=== PATIENT | female | born 1995 | race Caucasian/White ===

== ENCOUNTER 2017-10-16 21:01 | Emergency (ER) | payer OTHER ==
[2017-10-16 21:32] LABS: KETONE, URINE AUTO RFX NEGATIVE (NEGATIVE); LEUKOCYTE ESTERASE UR AUTO RFX NEGATIVE (NEGATIVE); NITRITE, URINE AUTO RFX NEGATIVE (NEGATIVE); RBC, URINE AUTO RFX 1 /HPF (0-3); SPECIFIC GRAVITY UR AUTO RFX 1.012 (1.002-1.035); SQUAM EPITHELIAL CELL UR AURFX 2 /HPF (0-6); WBC, URINE AUTO RFX 0 /HPF (0-3)
[2017-10-16 23:12] LABS: BASO % 0.4 % (0.0-1.0); EOS # 0.1 10^3/uL (0.0-0.50); EOS % 0.7 % (0.0-3.0); HEMATOCRIT 32.8 % (36.0-47.0); HEMOGLOBIN 11.2 g/dl (12.0-15.5); IMMATURE GRANULOCYTE % 0.2 % (0-3.0); LYMPH # 2.5 10^3/uL (1.5-6.5); MEAN CORPUSCULAR HGB CONC 34.1 g/dl (32.0-36.5); MEAN CORPUSCULAR VOLUME 90.9 fl (80.0-96.0); MONO # 0.6 10^3/uL (0.0-0.8); MONO % 6.9 % (0.0-5.0); NEUTROPHILS # 5.8 10^3/uL (1.8-7.7); NEUTROPHILS % 63.8 % (36.0-66.0); PLATELET COUNT, AUTOMATED 221 10^3/uL (150-450); RED BLOOD COUNT 3.61 10^6/uL (4.00-5.40); RED CELL DISTRIBUTION WIDTH 12.2 % (11.5-14.5)
[2017-10-16 23:46] LABS: ANION GAP 7 MEQ/L (8-16); BLOOD UREA NITROGEN 11 MG/DL (7-18); CALCIUM LEVEL 8.7 MG/DL (8.5-10.1); CARBON DIOXIDE LEVEL 25 MEQ/L (21-32); CHLORIDE LEVEL 110 MEQ/L (98-107); CREATININE FOR GFR 0.89 MG/DL (0.55-1.30); GLOMERULAR FILTRATION RATE > 60.0 (>60); GLUCOSE, FASTING 89 MG/DL (70-100); POTASSIUM SERUM 3.8 MEQ/L (3.5-5.1); SODIUM LEVEL 142 MEQ/L (136-145)
[2017-10-17 02:31] LABS: CHLAMYDIA DNA AMPLIFICATION NEGATIVE (NEGATIVE); GC DNA AMPLIFICATION NEGATIVE (NEGATIVE)
== END 2017-10-17 01:24 | disposition home or self-care (01) ==
LOC: M ED 10-17 01:24
DX: R10.2 Pelvic and perineal pain (principal); Z88.0 Allergy status to penicillin; F17.210 Nicotine dependence, cigarettes, uncomplicated
CPT/HCPCS: 80048

== ENCOUNTER → 2017-10-18 | Outpatient (CLI) | payer OTHER ==
[2017-10-18 20:08] LABS: HCG, SERUM QUANTITATIVE 32 MIU/ML
== END ==
LOC: M LAB 18:24
DX: N91.2 Amenorrhea, unspecified (principal)
CPT/HCPCS: 84702

== ENCOUNTER 2017-12-02 00:38 | Emergency (ER) | payer OTHER ==
[2017-12-02] MEDS: NS 1,000 ML IV (01:45)
[2017-12-02] MEDS: ONDANSETRON 4MG/2ML VIAL (J2405) IV (01:45)
[2017-12-02 02:10] LABS: BASO % 0.3 % (0.0-1.0); EOS # 0.1 10^3/uL (0.0-0.50); EOS % 0.4 % (0.0-3.0); HEMATOCRIT 34.6 % (36.0-47.0); HEMOGLOBIN 12.1 g/dl (12.0-15.5); IMMATURE GRANULOCYTE % 0.2 % (0-3.0); LYMPH # 2.2 10^3/uL (1.5-6.5); LYMPH % 19.2 % (24.0-44.0); MEAN CORPUSCULAR HEMOGLOBIN 31.5 pg (27.0-33.0); MEAN CORPUSCULAR VOLUME 90.1 fl (80.0-96.0); MONO # 0.7 10^3/uL (0.0-0.8); MONO % 6.2 % (0.0-5.0); NEUTROPHILS # 8.6 10^3/uL (1.8-7.7); NEUTROPHILS % 73.7 % (36.0-66.0); PLATELET COUNT, AUTOMATED 249 10^3/uL (150-450); RED BLOOD COUNT 3.84 10^6/uL (4.00-5.40); RED CELL DISTRIBUTION WIDTH 12.4 % (11.5-14.5); WHITE BLOOD COUNT 11.6 10^3/uL (4.0-10.0)
[2017-12-02 02:44] LABS: ALBUMIN 4.1 GM/DL (3.2-5.2); ALBUMIN/GLOBULIN RATIO 1.24 (1.00-1.93); ALKALINE PHOSPHATASE 49 U/L (45-117); ALT/SGPT 22 U/L (12-78); ANION GAP 10 MEQ/L (8-16); AST/SGOT 15 U/L (7-37); BILIRUBIN,DIRECT < 0.1 MG/DL (0.0-0.2); BILIRUBIN,TOTAL 0.3 MG/DL (0.2-1.0); BLOOD UREA NITROGEN 9 MG/DL (7-18); CALCIUM LEVEL 9.4 MG/DL (8.5-10.1); CARBON DIOXIDE LEVEL 28 MEQ/L (21-32); CHLORIDE LEVEL 105 MEQ/L (98-107); CREATININE FOR GFR 0.71 MG/DL (0.55-1.30); GLOMERULAR FILTRATION RATE > 60.0 (>60); GLUCOSE, FASTING 100 MG/DL (70-100); HCG, SERUM QUANTITATIVE 18134 MIU/ML; LIPASE 65 U/L (73-393); POTASSIUM SERUM 3.7 MEQ/L (3.5-5.1); SODIUM LEVEL 143 MEQ/L (136-145); TOTAL PROTEIN 7.4 GM/DL (6.4-8.2)
== END 2017-12-02 03:37 | disposition home or self-care (01) ==
LOC: M ED 00:38
DX: O03.39 Incomplete spontaneous abortion with other complications (principal); F17.210 Nicotine dependence, cigarettes, uncomplicated; Z88.0 Allergy status to penicillin
CPT/HCPCS: J2405

== ENCOUNTER 2017-12-09 12:49 | Day surgery (SDC) | payer OTHER ==
[2017-12-09] MEDS ORDERED: NS 1,000 ML IV ×4 (13:00)
[2017-12-09] MEDS ORDERED: PROPOFOL 200 MG/20 ML VIAL As Ordered ×2 (13:19)
[2017-12-09] MEDS ORDERED: LIDOCAINE 2% INJ 100 MG/5 ML SDV (FOR ANES.) As Ordered ×2 (13:20)
[2017-12-09] MEDS ORDERED: fentaNYL 100 MCG/2 ML INJECTION (J3010) As Ordered ×2 (13:22)
[2017-12-09] MEDS ORDERED: MIDAZOLAM INJ 2 MG/2 ML VIAL (J2250) As Ordered ×2 (13:22)
[2017-12-09 13:23] LABS: HEMATOCRIT 35.3 % (36.0-47.0); HEMOGLOBIN 11.9 g/dl (12.0-15.5); MEAN CORPUSCULAR HEMOGLOBIN 31.2 pg (27.0-33.0); MEAN CORPUSCULAR HGB CONC 33.7 g/dl (32.0-36.5); MEAN CORPUSCULAR VOLUME 92.7 fl (80.0-96.0); PLATELET COUNT, AUTOMATED 214 10^3/uL (150-450); RED BLOOD COUNT 3.81 10^6/uL (4.00-5.40); RED CELL DISTRIBUTION WIDTH 12.4 % (11.5-14.5)
[2017-12-09] MEDS ORDERED: KETOROLAC 60 MG/2 ML VIAL (J1885) As Ordered ×2 (13:28)
[2017-12-09] MEDS ORDERED: ONDANSETRON 4MG/2ML VIAL (J2405) As Ordered ×2 (13:28)
[2017-12-09] MEDS ORDERED: METOCLOPRAMIDE INJ 10MG/2ML VIAL (J2765) As Ordered ×2 (13:28)
[2017-12-09] MEDS ORDERED: dexameTHASONE 4 MG/ML 1ML VIAL (J1100) As Ordered ×2 (13:28)
[2017-12-09 14:01] LABS: ANION GAP 7 MEQ/L (8-16); BLOOD UREA NITROGEN 7 MG/DL (7-18); CALCIUM LEVEL 8.6 MG/DL (8.5-10.1); CARBON DIOXIDE LEVEL 26 MEQ/L (21-32); CHLORIDE LEVEL 107 MEQ/L (98-107); CREATININE FOR GFR 0.58 MG/DL (0.55-1.30); GLOMERULAR FILTRATION RATE > 60.0 (>60); GLUCOSE, FASTING 93 MG/DL (70-100); HCG, SERUM QUANTITATIVE 4572 MIU/ML; SODIUM LEVEL 140 MEQ/L (136-145)
[2017-12-09] MEDS: ACETAMINOPHEN 650 MG SUPP As Ordered ×2 (14:05)
[2017-12-09] MEDS: ACETAMINOPHEN 650 MG SUPP PR ×2 (14:30)
[2017-12-09] MEDS ORDERED: fentaNYL 100 MCG/2 ML INJECTION (J3010) IV ×2 (14:45)
[2017-12-09] MEDS ORDERED: LR 1,000 ML IV ×2 (14:45)
[2017-12-09] MEDS ORDERED: ONDANSETRON 4MG/2ML VIAL (J2405) IV ×2 (14:45)
[2017-12-09] MEDS ORDERED: PERCOCET 5MG/325MG TAB PO ×2 (14:45)
[2017-12-09] MEDS ORDERED: KETOROLAC 30 MG/ML VIAL (J1885) IV ×2 (20:00)
== END 2017-12-09 16:45 | disposition home or self-care (01) ==
LOC: M SDC 12:49
DX: O02.1 Missed abortion (principal); G43.909 Migraine, unspecified, not intractable, without status migrainosus; Z88.0 Allergy status to penicillin; Z72.0 Tobacco use
CPT/HCPCS: 59820

== ENCOUNTER 2018-02-24 13:02 | Emergency (ER) | payer OTHER | END 2018-02-24 14:40 | disposition left against medical advice (07) | LOC: M ED 13:02 | DX: O20.9 Hemorrhage in early pregnancy, unspecified (principal); Z53.21 Procedure and treatment not carried out due to patient leaving prior to being seen by health care provider ==

== ENCOUNTER 2018-04-14 11:47 | Emergency (ER) | payer OTHER ==
[2018-04-14 12:25] LABS: BASO % 0.3 % (0.0-1.0); EOS % 0.5 % (0.0-3.0); HEMATOCRIT 31.5 % (36.0-47.0); HEMOGLOBIN 11.1 g/dl (12.0-15.5); IMMATURE GRANULOCYTE % 0.5 % (0-3.0); LYMPH # 1.9 10^3/uL (1.5-6.5); LYMPH % 29.5 % (24.0-44.0); MEAN CORPUSCULAR HEMOGLOBIN 31.4 pg (27.0-33.0); MEAN CORPUSCULAR HGB CONC 35.2 g/dl (32.0-36.5); MONO # 0.4 10^3/uL (0.0-0.8); MONO % 6.3 % (0.0-5.0); NEUTROPHILS # 4.1 10^3/uL (1.8-7.7); NEUTROPHILS % 62.9 % (36.0-66.0); PLATELET COUNT, AUTOMATED 188 10^3/uL (150-450); RED BLOOD COUNT 3.54 10^6/uL (4.00-5.40); RED CELL DISTRIBUTION WIDTH 12.4 % (11.5-14.5); WHITE BLOOD COUNT 6.5 10^3/uL (4.0-10.0)
[2018-04-14 12:56] LABS: ALBUMIN 3.8 GM/DL (3.2-5.2); ALBUMIN/GLOBULIN RATIO 1.36 (1.00-1.93); ALKALINE PHOSPHATASE 47 U/L (45-117); ALT/SGPT 16 U/L (12-78); ANION GAP 8 MEQ/L (8-16); AST/SGOT 14 U/L (7-37); BILIRUBIN,DIRECT < 0.1 MG/DL (0.0-0.2); BILIRUBIN,TOTAL 0.2 MG/DL (0.2-1.0); BLOOD UREA NITROGEN 6 MG/DL (7-18); CALCIUM LEVEL 8.8 MG/DL (8.5-10.1); CARBON DIOXIDE LEVEL 25 MEQ/L (21-32); CHLORIDE LEVEL 105 MEQ/L (98-107); CREATININE FOR GFR 0.54 MG/DL (0.55-1.30); GLOMERULAR FILTRATION RATE > 60.0 (>60); GLUCOSE, FASTING 93 MG/DL (70-100); LIPASE 74 U/L (73-393); POTASSIUM SERUM 3.7 MEQ/L (3.5-5.1); SODIUM LEVEL 138 MEQ/L (136-145); TOTAL PROTEIN 6.6 GM/DL (6.4-8.2)
[2018-04-14 12:57] LABS: CONTROL LINE HCG INT CTR LINE PRESENT; HCG, SERUM QUALITATIVE POSITIVE (NEGATIVE)
[2018-04-14 13:25] LABS: KETONE, URINE AUTO RFX NEGATIVE (NEGATIVE); LEUKOCYTE ESTERASE UR AUTO RFX NEGATIVE (NEGATIVE); MUCUS, URINE RFX SMALL (NEGATIVE); NITRITE, URINE AUTO RFX NEGATIVE (NEGATIVE); RBC, URINE AUTO RFX 0 /HPF (0-3); SPECIFIC GRAVITY UR AUTO RFX 1.006 (1.002-1.035); SQUAM EPITHELIAL CELL UR AURFX 2 /HPF (0-6); WBC, URINE AUTO RFX 0 /HPF (0-3)
[2018-04-14 14:04] LABS: HCG, SERUM QUANTITATIVE 49717 MIU/ML
== END 2018-04-14 14:30 | disposition home or self-care (01) ==
LOC: M ED 11:47
DX: O99.89 Other specified diseases and conditions complicating pregnancy, childbirth and the puerperium (principal); R10.13 Epigastric pain; Z3A.13 13 weeks gestation of pregnancy; Z79.899 Other long term (current) drug therapy; Z88.0 Allergy status to penicillin
CPT/HCPCS: 76705

== ENCOUNTER 2018-04-25 18:22 | Emergency (ER) | payer OTHER ==
[2018-04-25] MEDS: NS 1,000 ML IV (20:45)
[2018-04-25] MEDS: ONDANSETRON 4MG/2ML VIAL (J2405) IV (20:45)
[2018-04-25 21:12] LABS: AMORPHOUS SEDIMENT RFX SMALL (NEGATIVE); KETONE, URINE AUTO RFX 1+ mg/dL (NEGATIVE); LEUKOCYTE ESTERASE UR AUTO RFX NEGATIVE (NEGATIVE); MUCUS, URINE RFX LARGE (NEGATIVE); NITRITE, URINE AUTO RFX NEGATIVE (NEGATIVE); RBC, URINE AUTO RFX 7 /HPF (0-3); SPECIFIC GRAVITY UR AUTO RFX 1.029 (1.002-1.035); SQUAM EPITHELIAL CELL UR AURFX 32 /HPF (0-6); WBC, URINE AUTO RFX 4 /HPF (0-3)
[2018-04-25 21:13] LABS: BASO % 0.1 % (0.0-1.0); EOS % 0.3 % (0.0-3.0); HEMATOCRIT 35.1 % (36.0-47.0); HEMOGLOBIN 12.1 g/dl (12.0-15.5); IMMATURE GRANULOCYTE % 0.4 % (0-3.0); LYMPH # 2.9 10^3/uL (1.5-6.5); LYMPH % 27.5 % (24.0-44.0); MEAN CORPUSCULAR HEMOGLOBIN 31.3 pg (27.0-33.0); MEAN CORPUSCULAR HGB CONC 34.5 g/dl (32.0-36.5); MEAN CORPUSCULAR VOLUME 90.9 fl (80.0-96.0); MONO # 0.6 10^3/uL (0.0-0.8); MONO % 5.5 % (0.0-5.0); NEUTROPHILS # 6.9 10^3/uL (1.8-7.7); NEUTROPHILS % 66.2 % (36.0-66.0); PLATELET COUNT, AUTOMATED 243 10^3/uL (150-450); RED BLOOD COUNT 3.86 10^6/uL (4.00-5.40); RED CELL DISTRIBUTION WIDTH 12.9 % (11.5-14.5); WHITE BLOOD COUNT 10.4 10^3/uL (4.0-10.0)
[2018-04-25] MEDS: FAMOTIDINE IV BAG 20 MG in APPROPRIATE DILUENT 1 EA IV (21:22)
[2018-04-25 21:29] LABS: ALBUMIN 4.1 GM/DL (3.2-5.2); ALKALINE PHOSPHATASE 54 U/L (45-117); ALT/SGPT 15 U/L (12-78); ANION GAP 5 MEQ/L (8-16); AST/SGOT 12 U/L (7-37); BILIRUBIN,DIRECT < 0.1 MG/DL (0.0-0.2); BILIRUBIN,TOTAL 0.3 MG/DL (0.2-1.0); BLOOD UREA NITROGEN 6 MG/DL (7-18); CALCIUM LEVEL 9.3 MG/DL (8.5-10.1); CARBON DIOXIDE LEVEL 29 MEQ/L (21-32); CHLORIDE LEVEL 103 MEQ/L (98-107); CREATININE FOR GFR 0.61 MG/DL (0.55-1.30); GLOMERULAR FILTRATION RATE > 60.0 (>60); GLUCOSE, FASTING 95 MG/DL (70-100); LIPASE 59 U/L (73-393); POTASSIUM SERUM 3.2 MEQ/L (3.5-5.1); SODIUM LEVEL 137 MEQ/L (136-145); TOTAL PROTEIN 8.2 GM/DL (6.4-8.2)
[2018-04-25] MEDS: POTASSIUM CHLORIDE 10 MEQ SR TABLET PO (22:49)
== END 2018-04-25 22:58 | disposition home or self-care (01) ==
LOC: M ED 18:22
DX: O21.9 Vomiting of pregnancy, unspecified (principal); O99.611 Diseases of the digestive system complicating pregnancy, first trimester; R19.7 Diarrhea, unspecified; O99.331 Smoking (tobacco) complicating pregnancy, first trimester; F17.210 Nicotine dependence, cigarettes, uncomplicated; Z3A.00 Weeks of gestation of pregnancy not specified; Z88.0 Allergy status to penicillin
CPT/HCPCS: J2405

== ENCOUNTER 2018-04-27 16:17 | Emergency (ER) | payer OTHER ==
[2018-04-27] MEDS: NS 1,000 ML IV (18:34)
[2018-04-27] MEDS: METOCLOPRAMIDE INJ 10MG/2ML VIAL (J2765) IV (18:34)
[2018-04-27 19:10] LABS: KETONE, URINE AUTO RFX NEGATIVE (NEGATIVE); LEUKOCYTE ESTERASE UR AUTO RFX NEGATIVE (NEGATIVE); NITRITE, URINE AUTO RFX NEGATIVE (NEGATIVE); RBC, URINE AUTO RFX 2 /HPF (0-3); SPECIFIC GRAVITY UR AUTO RFX 1.003 (1.002-1.035); SQUAM EPITHELIAL CELL UR AURFX 5 /HPF (0-6); WBC, URINE AUTO RFX 2 /HPF (0-3)
[2018-04-27 19:13] LABS: INR 0.94; PROTHROMBIN TIME 12.7 SECONDS (12.1-14.4)
[2018-04-27 19:15] LABS: BASO % 0.2 % (0.0-1.0); EOS % 0.2 % (0.0-3.0); HEMATOCRIT 31.7 % (36.0-47.0); IMMATURE GRANULOCYTE % 0.3 % (0-3.0); LYMPH % 21.3 % (24.0-44.0); MEAN CORPUSCULAR HEMOGLOBIN 31.5 pg (27.0-33.0); MEAN CORPUSCULAR HGB CONC 34.7 g/dl (32.0-36.5); MEAN CORPUSCULAR VOLUME 90.8 fl (80.0-96.0); MONO # 0.6 10^3/uL (0.0-0.8); MONO % 5.9 % (0.0-5.0); NEUTROPHILS # 6.8 10^3/uL (1.8-7.7); NEUTROPHILS % 72.1 % (36.0-66.0); PLATELET COUNT, AUTOMATED 229 10^3/uL (150-450); RED BLOOD COUNT 3.49 10^6/uL (4.00-5.40); RED CELL DISTRIBUTION WIDTH 12.9 % (11.5-14.5); WHITE BLOOD COUNT 9.5 10^3/uL (4.0-10.0)
[2018-04-27 19:24] LABS: LACTIC ACID SEPSIS PROTOCOL 0.6 MMOL/L (0.4-2.0)
[2018-04-27 19:38] LABS: ALBUMIN 3.7 GM/DL (3.2-5.2); ALBUMIN/GLOBULIN RATIO 1.16 (1.00-1.93); ALKALINE PHOSPHATASE 47 U/L (45-117); ALT/SGPT 17 U/L (12-78); ANION GAP 8 MEQ/L (8-16); AST/SGOT 12 U/L (7-37); BILIRUBIN,DIRECT < 0.1 MG/DL (0.0-0.2); BILIRUBIN,TOTAL 0.2 MG/DL (0.2-1.0); BLOOD UREA NITROGEN 5 MG/DL (7-18); CARBON DIOXIDE LEVEL 24 MEQ/L (21-32); CHLORIDE LEVEL 104 MEQ/L (98-107); CREATININE FOR GFR 0.52 MG/DL (0.55-1.30); FREE T4 1.03 NG/DL (0.76-1.46); GLOMERULAR FILTRATION RATE > 60.0 (>60); GLUCOSE, FASTING 83 MG/DL (70-100); LIPASE 62 U/L (73-393); MAGNESIUM LEVEL 1.8 MG/DL (1.8-2.4); POTASSIUM SERUM 3.8 MEQ/L (3.5-5.1); SODIUM LEVEL 136 MEQ/L (136-145); THYROID STIMULATING HORMONE 0.517 uIU/ML (0.358-3.740); TOTAL PROTEIN 6.9 GM/DL (6.4-8.2)
== END 2018-04-27 21:00 | disposition home or self-care (01) ==
LOC: M ED 16:17
DX: O21.0 Mild hyperemesis gravidarum (principal); O99.282 Endocrine, nutritional and metabolic diseases complicating pregnancy, second trimester; O99.332 Smoking (tobacco) complicating pregnancy, second trimester; O26.612 Liver and biliary tract disorders in pregnancy, second trimester; Z3A.15 15 weeks gestation of pregnancy; Z79.899 Other long term (current) drug therapy; Z88.0 Allergy status to penicillin
CPT/HCPCS: J2765

== ENCOUNTER 2018-08-31 12:51 | Outpatient (CLI) | payer OTHER ==
[~2018-08-31] VITALS: Ht 165.1 cm; Wt 76.6 kg
[~2018-08-31 12:51] MED LIST: SCOPOLAMINE TD; ZOFR4TAB14 PO; phenergan PR; prenatal PO
[2018-08-31 13:10] VITALS: BP 114/71
[2018-08-31] MEDS ORDERED: MAPA500T2 PO (13:16)
== END 2018-08-31 17:50 | disposition home or self-care (01) ==
LOC: M LDO 12:51
PROVIDERS: ATTEND Obstetrics & Gynecology
DX: O26.893 Other specified pregnancy related conditions, third trimester (principal); R10.30 Lower abdominal pain, unspecified; Z3A.33 33 weeks gestation of pregnancy
CPT/HCPCS: 59025; G0378; G0463

== ENCOUNTER 2018-10-07 22:54 | Outpatient (CLI) | payer OTHER ==
[~2018-10-07] VITALS: Ht 165.1 cm; Wt 80.2 kg
[~2018-10-07 22:54] MED LIST changes: +MAPA500T2 PO
[2018-10-07 23:26] VITALS: BP 137/88
[2018-10-08 00:40] VITALS: BP 119/79
--- NOTE | 2018-10-08 01:02 | IPNPDOC ---
Text Note Date of Service The patient was seen on 10/08/18. NOTE [id number] @ 0051 23 yo @ 39+0 presented ambulatory to L&D Triage with c/o clear jelly discharge x 1 week. Denies DFM, CTXs, and vaginal bleeding. S: pt resting in triage bed in semi-fowlers reporting mucous discharge and clear fluid leaking every few hours that makes about a quarter size on her underwear. Spouse is at bedside. O: VS- WNL, afebrile FHR- 150, moderate variability, + accels, no decels CTX-irregular, Q 1-8 min, lasting <90 sec, unable to palpate, pt reports she is not egraldo, resting tone is palpated as soft SVE- 1/50/-3, moderate/VTX/mid Valsalva- negative Pooling- negative Ferning- negative Nitrazine- negative Limited OB US- SIUP, + CA, + FM, REBEKAH-12.74, VTX A: 23 yo @ 39+0 with reactive NST, Negative SROM exam and uterine irritability P: Discharge to home with strict return precautions-LOF, DFM, CTXs, and vaginal bleeding. Encouraged to increase water intake. VS,Fishbone, I+O VS, Fishbone, I+O Vital Signs Date Time Temp Pulse Resp B/P (MAP) Pulse Ox O2 Delivery O2 Flow Rate FiO2 10/07/18 23:26 98.9 86 18 137/88 (104) LIGIA CLARKE CNM Oct 08, 2018 01:01
== END 2018-10-08 01:00 | disposition home or self-care (01) ==
LOC: M LDO 22:54
PROVIDERS: ATTEND Midwife
DX: O26.893 Other specified pregnancy related conditions, third trimester (principal); Z3A.39 39 weeks gestation of pregnancy; N89.8 Other specified noninflammatory disorders of vagina
CPT/HCPCS: 59025; 76815; G0378; G0463

== ENCOUNTER 2018-10-10 13:25 | Inpatient (IN) | payer OTHER ==
[2018-10-10] VITALS (11 sets, daily range): BP systolic 128–158; BP diastolic 71–98
[~2018-10-10] VITALS: Ht 165.1 cm; Wt 79.0 kg
[2018-10-10] MEDS ORDERED: SLF 3 ML SYR IV PRN (14:00)
[2018-10-10 14:40] LABS: HEMATOCRIT 32.5 % (36.0-47.0); HEMOGLOBIN 11.1 g/dl (12.0-15.5); MEAN CORPUSCULAR HEMOGLOBIN 32.6 pg (27.0-33.0); MEAN CORPUSCULAR HGB CONC 34.2 g/dl (32.0-36.5); MEAN CORPUSCULAR VOLUME 95.3 fl (80.0-96.0); PLATELET COUNT, AUTOMATED 168 10^3/uL (150-450); RED BLOOD COUNT 3.41 10^6/uL (4.00-5.40); WHITE BLOOD COUNT 10.7 10^3/uL (4.0-10.0)
[2018-10-10 14:56] LABS: CREATININE,RANDOM URINE 50.4 MG/DL; TOTAL PROTEIN,RANDOM URINE 10.7 MG/DL (0.0-12.0)
[2018-10-10 15:06] LABS: ALT/SGPT 16 U/L (12-78); BILIRUBIN,TOTAL 0.2 MG/DL (0.2-1.0); BLOOD UREA NITROGEN 9 MG/DL (7-18); CALCIUM LEVEL 8.6 MG/DL (8.5-10.1); CARBON DIOXIDE LEVEL 23 MEQ/L (21-32); CHLORIDE LEVEL 107 MEQ/L (98-107); CREATININE FOR GFR 0.67 MG/DL (0.55-1.30); GLOMERULAR FILTRATION RATE > 60.0 (>60); GLUCOSE, FASTING 72 MG/DL (70-100); POTASSIUM SERUM 3.9 MEQ/L (3.5-5.1); SODIUM LEVEL 138 MEQ/L (136-145); TOTAL PROTEIN 6.6 GM/DL (6.4-8.2)
[2018-10-10] MEDS: LR 1,000 ML IV SCH ×2 (15:31→23:00)
[2018-10-10] MEDS ORDERED: miSOPROStol 50 MCG 1/2 TAB (S0191) PO ONE ×2 (15:45→22:00)
--- NOTE | 2018-10-10 16:21 | NUR ---
Obstetrical History & Physical General Date of Admission Oct 10, 2018 at 15:35 History of Present Illness Kasia is a 22 y/o at 39+2 weeks via L/7+4 week TVUS who was an immediate referral from outpatient OB clinic for blood pressure values of 150 's/90's and 140's/100's. She denies headaches, visual changes, epigastric pain, nausea/vomiting, CTX or VB. She endorses less than usual FM and reports intermittent LOF x 7 days. Her is c/b smoking 1/2 ppd. Chief Complaint: IOL Information Provided By: Patient Age: 22 : 2 Term: 0 Pre-term: 0 Abortions: 1 Livin Care Care: Good Care Dating Final EDC: October 15, 2018 Final EDC for Daily Update: October 15, 2018 Final EDC by: LMP and c/w1st trimester (US) (7+4 week US on 01 MAR 2018 Antepartum Course Diagnos(e)s nicotine dependence Past Medical History Past Obstetrical History : Past Obstetrical History: G1- early gestation loss s/p D&C; G2-current [employer] History: No pertinent history Past Medical History Medical History denies Surgical History: D&C 2018 Family History Significant Family History: No pertinent family hx Social History Marital Status: Family situation: Spouse/partner home Psychosocial History: denies * Smoker: 1/2ppd Alcohol: denies Drugs: denies Imunizations Tdap status: current Influenza Status: current Allergies Coded Allergies: No Known Allergies Medications Scheduled No.137/Iron/Folic Acd ( Vitamin Tablet) 1 Each Tablet, 1 TAB PO DAILY Physical Examination Physical Examination Chaperoned L&D RN VS: Mild range BP/AF GENERAL: Alert and oriented times three. CV: RRR PUL: CTAB ABDOMEN: Gravid and non-tender to touch. FETUS: Is vertex (VTX) by sterile vaginal examination (SVE) EXTREMITIES: Trace edema; +2 DTR's; neg clonus. Cervix: 1/50/-2, cephalic vtx. IBOW SSE: neg pooling Micro: neg nitrozine; neg ferning; physiologic leukorrhea Laboratory Data Admission labs/baseline tox labs WNL. Urine protein/creat 0.2 10/09/18 10:53: Serology Scanned Report Hepatitis B Testing Urine Culture: NEG Pertinent Laboratoy Data Blood Type: A+ RBC Antibody Screen: Negative HIV: Negative Hepatitis B: Negative Hepatitis C: Unknown Rapid Plasma Reagin: Nonreactive Rubella: Immune Varicella: Non-Immune Chlamydia/Gonorrhea: Negative Group B Streptococcus: Negative Quad Screen Test: declined Glucose Tolerance Test: 115 Anatomy Ultrasound Placenta Location: Posterior Normal Anatomy: echogenic bowel- f/u US at [facility] was WNL w/o anomalies Placenta Previa: No Steroid Therapy Steroid Therapy: No Vaginal Examination Dilation: 1 Effacement: 50% Station: -2 Cervical Consistency: moderate Cervical Position: mid Presentation: Cephalic presentation Position: Vertex (occiput) Assessment Cat I FHR. + accelerations. moderate variability Tocometer Contractions: rare/occasional Frequency: irregular pattern Duration: less than 60 seconds Strength: palpated as mild Assessment/Plan Assessment 22 yo at 39+2 weeks gestation via L/7+4 week US; admission for GHTN. Cat 1 FHR. GBS NEG. Reviewed assessment/plan with Dr. Morejon. She is in agreement. Plan Admit to L&D for IOL; will initiate with cytotec for cervical ripening. Consented for vaginal delivery and repair as needed. Denies questions/concerns.
[2018-10-10] MEDS ORDERED: LACTATED RINGER'S 1000 ML IV ONE (16:30)
--- NOTE | 2018-10-10 18:44 | NUR ---
[facility] Intrapartum Progress Note: S: CNM at for assessment. Pt resting on side. Denies questions/concerns. Denies headache, visual changes, epigastric pain, nausea or vomiting. O: VSS/AF; no recent mild range pressures. A&Ox3, NAD Gravid: NTTP; relaxed uterine resting tone FHR: CAT I with BL135, moderate variability and + accelerations. TOCO: ctx q2.5-3min, mild intensity via palpation. A/P: Kasia is a 22 y/o at 39+2 weeks via L/7+4 week TVUS recent admission for IOL d/t GHTN. Received initial dose of misoprostil at 1700 for cervical ripening with some increased uterine activity. FHR remains category 1. Safe to proceed.
[2018-10-10] MEDS: SLF 3 ML SYR IV SCH (22:08)
--- NOTE | 2018-10-10 22:53 | IPNPDOC ---
Text Note Date of Service The patient was seen on 10/10/18. NOTE Intrapartum Note Kasia is a 23yo with SIUP at 39+ weeks who is undergoing IOL for GHTN diagnosed today. She was seen to have mild range bp's in clinic that were sust ained in triage, PIH labs all wnl and no concern for pre-E. First SCE at 1500 was 150/-2 and she received a dose of oral cytotec at 1700 with repeat dose at 2200. She is now having some bloody show. Only feels slight cramping. Vitals wnl, afebrile SCE /-2, pickens cervical bulb placed without issue filled with 40cc NS Cat I FHRT with irreg ctx 2g IV stadol q4hr until active labor with 1x dose of 12.5mg IV phenergan Candidate for epidural in active labor Will start pitocin 4hr after last cytotec dose and titrate per protocol Safe to proceed Dr. Nelsy Morejon MD A-FIB/CHADSVASC A-FIB History Current/History of A-Fib/PAF?: No Current Oral Anticoagulant The: No VS,Fishbone, I+O VS, Fishbone, I+O Laboratory Tests 10/10/18 14:02 Red Blood Count 3.41 L, Mean Corpuscular Volume 95.3, Mean Corpuscular Hemoglobin 32.6, Mean Corpuscular Hemoglobin Concent 34.2, Red Cell Distribution Width 12.8, Calcium Level 8.6, Aspartate Amino Transf (AST/SGOT) 14, Alanine Aminotransferase (ALT/SGPT) 16, Alkaline Phosphatase 160 H, Total Bilirubin 0.2, Total Protein 6.6, Albumin 3.0 L Vital Signs Date Time Temp Pulse Resp B/P (MAP) Pulse Ox O2 Delivery O2 Flow Rate FiO2 10/10/18 18:57 98.1 88 18 134/81 (98) Nelsy Morejon MD Oct 10, 2018 22:53
[2018-10-10] MEDS ORDERED: PROMETHAZINE INJ 25 MG/ML VIAL (J2550) IV ONE (23:00)
[2018-10-10] MEDS ORDERED: OXYTOCIN DRIP 30 UNITS in APPROPRIATE DILUENT 1 EA IV SCH (23:00)
[2018-10-10] MEDS: BUTORPHANOL 2 MG/ML INJ (J0595) IV PRN (23:01)
[2018-10-11] MEDS: BUTORPHANOL 2 MG/ML INJ (J0595) IV PRN (03:00)
[2018-10-11] MEDS ORDERED: FENTANYL 2MCG/ML ROPIVACAINE 0.2% IN 0.9% NACL 100ML IVBAG As Ordered ONE (04:12)
[2018-10-11] MEDS: FENTANYL/ROPIVACAINE/NACL BAG 100 ML EPIDURAL SCH ×2 (04:54→14:59)
[2018-10-11] MEDS ORDERED: diphenhydrAMINE INJ 50MG/ML VIAL (J1200) IV PRN (04:59)
[2018-10-11] MEDS ORDERED: REFRIGERATOR IV KEYS XX PRN (04:59)
[2018-10-11] MEDS ORDERED: NALOXONE INJ 0.4 MG/1 ML VIAL (J2310) IV PRN (04:59)
[2018-10-11] MEDS ORDERED: LACTATED RINGER'S 1000 ML IV PRN (04:59)
[2018-10-11] MEDS ORDERED: ONDANSETRON 4MG/2ML VIAL (J2405) IV PRN (04:59)
[2018-10-11] MEDS ORDERED: ePHEDrine SULFATE 25 MG/5 ML(5MG/ML) SYRINGE IV PRN (04:59)
[2018-10-11] MEDS ORDERED: EPIDURAL COMMENT XX SCH (04:59)
[2018-10-11] MEDS ORDERED: EPIDURAL/PCA KEYS XX PRN (04:59)
[2018-10-11] MEDS ORDERED: OXYTOCIN DRIP 30 UNITS in APPROPRIATE DILUENT 1 EA IV SCH (06:17)
--- NOTE | 2018-10-11 06:29 | DNPDOC ---
[facility] Delivery Note Delivery Note DATE OF DELIVERY: 11 Oct 2018 PREDELIVERY DIAGNOSIS: 39w3d iol for newly diagnosed GHTN POST DELIVERY DIAGNOSIS: Delivered. PROCEDURE: Spontaneous vaginal delivery NOZZLEMAN: Dr. Nelsy Morejon MD ANESTHESIA: epidural ESTIMATED BLOOD LOSS: 250 mL. FINDINGS: 5 pound 12 ounce (2620g) female , Score 7/8 DELIVERY SUMMARY: Kasia is a 23yo [id number] s/p uncomplicated at 39w3d after undergoing IOL for newly diagnosed GHTN, delivering at 05:47 on 11 Oct 2018. She presented at 1cm, received oral cytotec and then pickens cervical bulb, rapidly progressed, received an epidural and began pushing within 30 minutes. Unknown time of SROM, but fluid had been coming out of the pickens bulb which was blood tinged. In less than 30 minutes of pushing, head delivered OA, restituted NIKHIL. Left anterior shoulder delivered easily, right compound hand noted, posterior shoulder and corpus followed. Infant was vigorous with spontaneous cry, placed on maternal abdomen. Nose and mouth were suctioned with bulb suction, apgars 7/8. Cord clamped x2 after 2 minutes and cut by FOB. Uterine massage performed, traction on the umbilical cord, placenta delivered spontaneously and intact with 3 vessel centrally inserted cord (there was a cotyledon on one side but still adherent to the rest of the placenta- this may have represented a small abruption which would explain the bloody fluid noted from the pickens bulb earlier in the labor course and then the gush of bloody fluid noted at time of delivery of the infant- the FHRT had always been reassuring). IV pitocin was gi js per protocol, bimanual massage was performed and uterus then firm at u-3cm. Inspection of perineum and vagina revealed superficial bilateral labial lacerations and a 1mll inside the introitus (not involving perineal skin) repaired with 3-0 vicryl in routine fashion with complete hemostasis and good cosmesis. All counts correct x2. Total hemostasis assured. Mom and infant were d oing well when I left the room. MD Jean-Pierre Hill Katrina D MD October 11, 2018 06:29
[2018-10-11] MEDS ORDERED: IBUPROFEN 800 MG TAB PO PRN (06:30)
[2018-10-11] MEDS ORDERED: DOCUSATE SODIUM 100 MG CAP PO PRN (06:30)
[2018-10-11] MEDS ORDERED: DIBUCAINE 1% OINTMENT 30GM TOP PRN (06:30)
[2018-10-11] MEDS ORDERED: RHOGAM 300 MCG (1500 IU) INJ (J2790) IM SCH (06:30)
[2018-10-11] MEDS ORDERED: MEASLES,MUMPS,RUBELLA VACCINE INJ (MMR-II) (90707) SC SCH (06:30)
[2018-10-11] MEDS ORDERED: ACETAMINOPHEN 500 MG TAB PO PRN (06:30)
[2018-10-11 07:29] VITALS: BP 127/79
[2018-10-11] MEDS: LR 1,000 ML IV SCH ×2 (07:31→15:31)
[2018-10-11] MEDS: SLF 3 ML SYR IV SCH ×3 (07:44→14:00)
[2018-10-11 10:30] VITALS: BP 126/71
[2018-10-11] MEDS: PRENATAL VITAMINS CHEWABLE TABLET PO SCH (17:17)
[2018-10-12] MEDS: SLF 3 ML SYR IV SCH (05:29)
[2018-10-12 06:00] VITALS: BP 136/70
[2018-10-12] MEDS: PRENATAL VITAMINS CHEWABLE TABLET PO SCH (08:47)
[2018-10-12] MEDS ORDERED: MAPA500T2 PO (08:51)
[2018-10-12] MEDS ORDERED: IBUP-1114 PO (08:52)
[2018-10-12] MEDS ORDERED: COLA100C5 PO (08:53)
[2018-10-12] MEDS ORDERED: DIBU10OI TOP (08:55)
[2018-10-12 09:00] VITALS: BP 120/75
--- NOTE | 2018-10-12 13:23 | DSES ---
DATE OF ADMISSION: 10/10/2018 DATE OF DISCHARGE: 10/12/2018 A 23-year-old 2, now para 1 admitted at 39 and 2 weeks of gestation because of gestational hypertension newly diagnosed and loss of fluid by the patient times 7 days. She had an epidural in place, spontaneous vaginal delivery of a female 5 pounds 12 ounces, 2620 grams, of 7 and 8 at 1 and 5 minutes respectively. On her day #1 discussed phlebitis, cystitis, mastitis, endometritis, cellulitis, diet, excise, pain management, perineal, breast and wound care. The patient is planning on discharge today. The rest of the examination is unremarkable. Normocephalic, atraumatic. Neck: Full range of motion. Pupils equal and reactive to light. Distal pulses symmetric. No evidence of deep vein thrombosis (DVT), pulmonary embolism (PE) or superficial phlebitis. Chest is clear bilaterally bases. No wheezes or rhonchi. No costovertebral angle (CVA) tenderness. Abdomen: Soft. Uterus 2 below. Lochia is moderate. Four quadrant bowel sounds. The perineum is healing. No rashes, lesions or pruritus. No arthralgia or myalgia. No complaint of joint pain. No complaint of cough, wheezes, shortness breath or dyspnea on exertion. No nausea, vomiting, diarrhea or constipation. No urgency or frequency. In summary, we have a term gestation delivered a live female infant after newly diagnosed gestational hypertension. Six-week postoperative checkup at [facility]. Medications dispensed at discharge.
== END 2018-10-12 11:50 | disposition home or self-care (01) | DRG 807 ==
LOC: M LDO 13:25 → M LDI 15:40 → M OBS 10-11 10:22
PROVIDERS: ADMIT Advanced Practice Midwife; ATTEND Obstetrics & Gynecology
PROC: 3E0P7GC Introduction of Other Therapeutic Substance into Female Reproductive, Via Natural or Artificial Opening (ICD-10-PCS; 2018-10-10)
PROC: 10E0XZZ Delivery of Products of Conception, External Approach (ICD-10-PCS; principal; 2018-10-11)
PROC: 0HQ9XZZ Repair Perineum Skin, External Approach (ICD-10-PCS; 2018-10-11)
DX: O13.4 Gestational [pregnancy-induced] hypertension without significant proteinuria, complicating childbirth (principal); Z37.0 Single live birth; O99.334 Smoking (tobacco) complicating childbirth; Z3A.39 39 weeks gestation of pregnancy; F17.210 Nicotine dependence, cigarettes, uncomplicated; O70.0 First degree perineal laceration during delivery

== ENCOUNTER 2018-10-20 15:47 | Emergency (ER) | payer OTHER ==
[~2018-10-20] VITALS: Ht 165.1 cm; Wt 71.4 kg
[~2018-10-20 15:47] MED LIST changes: +COLA100C5 PO; +DIBU10OI TOP; +IBUP-1114 PO
[2018-10-20] MEDS ORDERED: MECL-86 (15:54)
[2018-10-20] MEDS ORDERED: ZOFR4TAB16 (15:54)
[2018-10-20] MEDS ORDERED: diphenhydrAMINE INJ 50MG/ML VIAL (J1200) IV STA (15:59)
[2018-10-20] MEDS ORDERED: NS 1,000 ML IV ONE (16:00)
[2018-10-20] MEDS ORDERED: KETOROLAC 30 MG/ML VIAL (J1885) IV ONE (16:00)
[2018-10-20] MEDS ORDERED: METOCLOPRAMIDE INJ 10MG/2ML VIAL (J2765) IV ONE (16:00)
[2018-10-20 19:10] VITALS: BP 121/79
== END 2018-10-20 19:14 | disposition home or self-care (01) ==
LOC: M ED 15:47
DX: G97.1 Other reaction to spinal and lumbar puncture (principal); F17.210 Nicotine dependence, cigarettes, uncomplicated; Z88.0 Allergy status to penicillin; Z88.1 Allergy status to other antibiotic agents
CPT/HCPCS: 96361; 96374; 96375; 99284; J1200; J1885; J2765